=== PATIENT | female | born 1940 | race Caucasian/White ===

== ENCOUNTER → 2016-10-05 | Outpatient (CLI) | payer MEDICARE, OTHER ==
--- NOTE | 2016-10-05 22:43 | RADIOLOGY REPORT (SQ) ---
EXAM DESCRIPTION: MRI LT LOWER JOINT WITHOUT COMPLETED DATE/TIME: 10/05/2016 12:46 pm REASON FOR STUDY: PAIN IN LEFT KNEE M25.562 PAIN IN LEFT KNEE COMPARISON: None. TECHNIQUE: Leftknee images acquired and stored on PACS. Multiplanar images include fat sensitive se quences as T1, water sensitive sequences as FST2 or STIR, cartilage sensitive sequences as FSPD, and gradient echo sequences. LIMITATIONS: None. FINDINGS: JOINT AND BURSAE: Relates small joint effusion. No loose bodies. BONE CORTEX AND MARROW: No alteration of signal to suggest marrow replacement. No worrisome bone lesi ons. No occult fracture. ACL: Intact. PCL: Intact. MCL: Intact. LCL: Intact. MEDIAL MENISCUS: Ballooning of the posterior horn, abnormal horizontal cleavage tear as well. Extrud ed appearance. Meniscus roots intact. LATERAL MENISCUS: Mild intrasubstance/horizontal degenerative signal. MEDIAL COMPARTMENT: Chondral thinning without focal defect. No bulky osteophytes. No subchondral cy sts or erosions. LATERAL COMPARTMENT: Cartilage preserved. No bone bruises or reactive marrow edema. No osteophytes. PATELLA: Normal location. Diffuse chondral thinning with full thickness loss near the patellar apex. No subchondral cysts or erosions. EXTENSOR MECHANISM: Intact. Quadriceps and patella tendons normal. SOFT TISSUES: Small Avila's cyst. Appropriate vascular flow voids. OTHER: No other significant finding. IMPRESSION: 1. Medial meniscus tear. 2. Cruciate and collateral ligaments intact. Lateral meniscu s normal allowing for degenerative signal. 3. 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 TECHNICAL DOCUMENTATION: JOB ID: [id number] [facility]- All Rights Reserved
== END ==
LOC: RAD 10:43
PROVIDERS: ATTEND Orthopaedic Surgery
DX: M25.562 Pain in left knee (principal)

== ENCOUNTER → 2018-06-23 | Outpatient (CLI) | payer MEDICARE, OTHER ==
--- NOTE | 2018-06-23 14:59 | RADIOLOGY REPORT (SQ) ---
EXAM DESCRIPTION: MRI LUMBAR SPINE WITHOUT COMPLETED DATE/TIME: 06/23/2018 2:35 pm REASON FOR STUDY: M54.5 LOW BACK PAIN M54.5 LOW BACK PAIN COMPARISON: None. TECHNIQUE: Sagittal and Axial imaging includes T1, T2, STIR and gradient echo sequences. Coronal T2/ HASTE imaging. LIMITATIONS: None. FINDINGS: VISUALIZED UPPER ABDOMEN: Limited evaluation. No acute or suspicious findings suggested. SEGMENTATION: No transitional anatomy. The lowest well-developed disc space is labeled L5-S1. ALIGNMENT: Anatomic. VERTEBRAE: Intact. BONE MARROW: Normal. No marrow replacement or reactive changes. DISC SIGNAL: Diffuse decreased T2 weighted intervertebral disc signal with disc space loss of height throughout the lumbar spine POSTERIOR ELEMENTS: Generally intact. No pars defect evident. HARDWARE: None in the spine. CORD AND CONUS: Normal in size and signal intensity. Conus at the T12-L1 level. SOFT TISSUES: No aortic aneurysm seen. No bulky retroperitoneal adenopathy or mass. No paraspinal mas s or fluid. T11-12: No central or foraminal stenosis T12-L1: No central or foraminal stenosis. L1-2: No central or foraminal stenosis. Mild bilateral facet hypertrophy. Minimal central posterio r disc bulging. L2-3: Broad diffuse posterior disc bulge and bony spurring is present right greater than left. This finding along with moderate bilateral facet hypertrophy causes mild to moderate central canal narrowi ng with partial effacement of the CSF around the lumbar nerve roots best shown on axial T2 image 12. Asymmetric rightward thecal sac flattening in the lateral recess containing the proximal right L3 ne rve root axial image 12. Elsewhere at L2-3, there is moderate right and mild left foraminal narrowing without exiting L2 nerve root impingement. L3-4: Broad diffuse posterior disc bulge and bony spurring, moderate bilateral facet and ligament hyp ertrophy causes moderate to high-grade central canal stenosis with effacement of the CSF around the l umbar nerve roots, best shown on axial T2 image 18. There is moderate right and mild left foraminal narrowing without definite exiting L3 nerve root impingement L4-5: Broad diffuse posterior disc bulging and moderate bilateral facet and ligament hypertrophy are present with a small left paracentral disc protrusion. These findings cause mild central canal steno sis best shown on axial T2 image 24. There is mild bilateral foraminal narrowing without exiting L4 nerve root impingement. L5-S1: Bilateral facet arthropathy left greater than right. Mild posterior disc bulging. No central stenosis. No right foraminal narrowing. High-grade left foraminal stenosis at L5-S1 from facet hyp ertrophy best shown on sagittal image 12. Effacement of the fat around the left exiting L5 nerve bushra t SACRUM: Visualized upper sacrum intact. OTHER: No other significant findings. IMPRESSION: Multilevel central and foraminal stenosis as above TECHNICAL DOCUMENTATION: JOB ID: [id number] [employer]- All Rights Reserved Reading location - IP/workstation name: [email or web address]
== END ==
LOC: RAD 13:43
PROVIDERS: ATTEND Orthopaedic Surgery
DX: M54.5 Low back pain (principal)
CPT/HCPCS: 72148